=== PATIENT | female | born 1940 | race Caucasian/White ===

== ENCOUNTER 2018-05-06 00:25 | Emergency (ER) | payer MEDICARE, MEDICAID ==
[2018-05-06] MEDS ORDERED: Ondansetron PF 4 MG/2 ML Vial ONE (00:31)
[2018-05-06] MEDS ORDERED: Meclizine HCl 25 MG TAB ONE (01:07)
[2018-05-06 01:47] LABS: Bilirubin Negative (Negative); Blood, Urine Negative (Negative); Clarity CLEAR (Clear); Glucose, Urine (Dipstick) 100 mg/dL (Negative); Leukocyte Negative (Negative); Nitrite Negative (Negative); Protein, Urine (Dipstick) Trace mg/dL (Neg-Trace); Specific Gravity, Urine 1.011 (1.002-1.036); Urobilinogen 0.2 mg/dL (0.2-1.0); pH, Urine 6.5 (5.0-9.0)
[2018-05-06 01:58] LABS: #Eosinphils 0.1 thou/uL (0.0-0.7); #Lymphocytes 0.8 thou/uL (1.20-3.40); #Monocytes 0.7 thou/uL (0.11-0.59); %Basophils 0.3 % (0.0-1.0); %Eosinophils 0.3 % (0.0-10.0); %Lymphocytes 5.2 % (21.0-51.0); %Monocytes 4.7 % (0.0-10.0); %Neutrophils 89.5 % (42.0-75.0); Hemoglobin 14.3 g/dL (12.0-16.0); Mean Corpuscular HGB CONC 33.1 g/dL (32.0-36.0); Mean Corpuscular Hemoglobin 33.6 pg (27.0-31.0); Mean Platelet Volume 8.1 fL (7.4-10.4); Platelet Count 245 thou/uL (130-400); RBC Distribution Width 12.2 % (11.5-14.5); Red Blood Cell (RBC) Count 4.25 mill/uL (4.20-5.40); White Blood Cell (WBC) Count 15.6 thou/uL (4.8-10.8)
[2018-05-06 02:15] LABS: ALT (SGPT) 17 U/L (8-55); AST (SGOT) 19 U/L (5-34); Albumin 4.5 g/dL (3.4-4.8); Alkaline Phosphatase 47 U/L (40-150); Anion Gap 16 mmol/L (10-20); BUN (Urea Nitrogen) 14 mg/dL (9.8-20.1); Bilirubin, Total 0.5 mg/dL (0.2-1.2); CK (CPK) 85 U/L (29-168); Calc. Creatinine Clearance 0 mL/min (70-130); Calcium 9.3 mg/dL (7.8-10.44); Carbon Dioxide 22 mmol/L (23-31); Chloride 102 mmol/L (98-107); Estimated GFR-MDRD 55; Globulin 2.8 g/dL (2.4-3.5); Glucose 125 mg/dL (83-110); Potassium 3.5 mmol/L (3.5-5.1); Protein, Total 7.3 g/dL (6.0-8.3); Sodium 136 mmol/L (136-145)
--- NOTE | 2018-05-06 08:01 | CT ---
FINAL REPORT EMERGENT AFTER HOURS CT OF THE BRAIN WITHOUT CONTRAST: COMPARISON: 02/02/2016. FINDINGS/IMPRESSION: I agree with the findings and impression given in the preliminary report per [facility] physician. Small- vessel ischemic disease without acute intracranial abnormality. POS: [facility]
--- NOTE | 2018-05-06 08:16 | RAD ---
SINGLE VIEW CHEST: Date: 05/06/18 COMPARISON: None. HISTORY: New onset nausea and vomiting. Dizziness. FINDINGS: Single view of the chest shows a normal sized cardiomediastinal silhouette. There is no evidence of c onsolidation, mass, or pleural effusion. The bones are unremarkable. IMPRESSION: No evidence of acute cardiopulmonary disease. POS: [facility]
== END 2018-05-06 03:25 | disposition home or self-care (01) ==
LOC: ERS 00:25
DX: R11.2 Nausea with vomiting, unspecified (principal); R42 Dizziness and giddiness; E03.9 Hypothyroidism, unspecified; E78.5 Hyperlipidemia, unspecified; F32.9 Major depressive disorder, single episode, unspecified; Z87.891 Personal history of nicotine dependence
CPT/HCPCS: 36415; 70450; 71045; 80053; 81003; 82550; 84484; 85025; 96374; J2405

== ENCOUNTER 2019-05-09 09:33 | Emergency (ER) | payer MEDICARE, MEDICAID ==
[2019-05-09 10:07] LABS: #Eosinphils 0.2 thou/uL (0.0-0.7); #Lymphocytes 0.9 thou/uL (1.20-3.40); #Monocytes 0.4 thou/uL (0.11-0.59); #Neutrophils 3.9 thou/uL (1.40-6.50); %Basophils 0.6 % (0.0-1.0); %Lymphocytes 17.3 % (21.0-51.0); %Monocytes 7.8 % (0.0-10.0); %Neutrophils 71.2 % (42.0-75.0); Hemoglobin 13.8 g/dL (12.0-16.0); Mean Corpuscular HGB CONC 34.6 g/dL (32.0-36.0); Mean Corpuscular Hemoglobin 34.3 pg (27.0-31.0); Mean Platelet Volume 8.2 fL (7.4-10.4); Platelet Count 225 thou/uL (130-400); RBC Distribution Width 12.6 % (11.5-14.5); Red Blood Cell (RBC) Count 4.04 mill/uL (4.20-5.40); White Blood Cell (WBC) Count 5.4 thou/uL (4.8-10.8)
[2019-05-09 10:27] LABS: ALT (SGPT) 12 U/L (8-55); AST (SGOT) 15 U/L (5-34); Albumin 4.2 g/dL (3.4-4.8); Alkaline Phosphatase 37 U/L (40-110); Anion Gap 12 mmol/L (10-20); BUN (Urea Nitrogen) 21 mg/dL (9.8-20.1); CK (CPK) 62 U/L (29-168); Calc. Creatinine Clearance 0 mL/min (70-130); Calcium 9.2 mg/dL (7.8-10.44); Carbon Dioxide 26 mmol/L (23-31); Chloride 105 mmol/L (98-107); Estimated GFR-MDRD 62; Globulin 2.3 g/dL (2.4-3.5); Glucose 129 mg/dL (83-110); Potassium 4.4 mmol/L (3.5-5.1); Protein, Total 6.5 g/dL (6.0-8.3); Sodium 139 mmol/L (136-145)
--- NOTE | 2019-05-09 10:34 | CT ---
Head CT without contrast 05/09/2019: COMPARISON: 05/06/2018 HISTORY: Dizziness with nausea and vomiting, headache TECHNIQUE: Axial CT imaging at 5 mm intervals from vertex through skull base without contrast FINDINGS: Visualized paranasal sinuses and mastoid air cells are well-aerated. There is no displaced calvarial fracture noted. There is extensive periventricular, deep, and subcortical white matter hypodensity, evidence of stable small vessel disease. No intracranial hemorrhage, midline shift, or mass effect. IMPRESSION: Small vessel disease. No intracranial hemorrhage.
--- NOTE | 2019-05-09 10:42 | RAD ---
CHEST ONE VIEW: History: Chest pain Comparison: 05-06-18 FINDINGS: Lungs are mildly hyperinflated. No pneumothorax or effusion. Scarring left lung base. Pulmonary arter ies are mildly distended. Mild ectasia of the descending thoracic aorta. No acute osseous abnormality. IMPRESSION: No acute intrathoracic abnormality. POS: [facility]
[2019-05-09 11:00] LABS: Bacteria/HPF 4+ HPF (None Seen); Bilirubin Negative (Negative); Blood, Urine Negative (Negative); Clarity Turbid (Clear); Glucose, Urine (Dipstick) Normal (Negative); Leukocyte 500 Leu/uL (Negative); Nitrite Negative (Negative); Protein, Urine (Dipstick) 10 mg/dL (Neg-Trace); RBC/HPF 0-3 HPF (0-3); Squamous Epithelial 0-3 HPF (0-3); Urobilinogen Normal mg/dL (Less than 2); WBC/HPF Greater than 50 HPF (0-3)
== END 2019-05-09 13:13 | disposition home or self-care (01) ==
LOC: ERS 09:33
DX: R42 Dizziness and giddiness (principal); N39.0 Urinary tract infection, site not specified; E03.9 Hypothyroidism, unspecified; E78.00 Pure hypercholesterolemia, unspecified; F32.9 Major depressive disorder, single episode, unspecified; Z79.899 Other long term (current) drug therapy; Z87.891 Personal history of nicotine dependence
CPT/HCPCS: 36415; 70450; 71045; 80053; 81003; 81015; 82550; 84484; 85025; 87077; 87086; 87186; 93005

== ENCOUNTER 2019-12-31 01:06 | Emergency (ER) | payer MEDICARE, MEDICAID ==
[2019-12-31 02:13] LABS: #Basophils 0.1 thou/uL (0.0-0.2); #Eosinphils 0.1 thou/uL (0.0-0.7); #Lymphocytes 0.9 thou/uL (1.20-3.40); #Monocytes 0.5 thou/uL (0.11-0.59); #Neutrophils 4.4 thou/uL (1.40-6.50); %Eosinophils 1.4 % (0.0-10.0); %Lymphocytes 14.3 % (21.0-51.0); %Monocytes 9.1 % (0.0-10.0); %Neutrophils 74.1 % (42.0-75.0); Hemoglobin 13.5 g/dL (12.0-16.0); Mean Corpuscular HGB CONC 34.1 g/dL (32.0-36.0); Mean Corpuscular Hemoglobin 33.9 pg (27.0-31.0); Mean Corpuscular Volume 99.6 fL (78.0-98.0); Mean Platelet Volume 8.3 fL (7.4-10.4); Platelet Count 216 thou/uL (130-400); RBC Distribution Width 12.1 % (11.5-14.5); Red Blood Cell (RBC) Count 3.97 mill/uL (4.20-5.40); White Blood Cell (WBC) Count 5.9 thou/uL (4.8-10.8)
[2019-12-31 02:36] LABS: ALT (SGPT) 8 U/L (8-55); AST (SGOT) 12 U/L (5-34); Albumin 4.1 g/dL (3.4-4.8); Alkaline Phosphatase 30 U/L (40-110); Anion Gap 13 mmol/L (10-20); BUN (Urea Nitrogen) 18 mg/dL (9.8-20.1); Bilirubin, Total 0.4 mg/dL (0.2-1.2); Calc. Creatinine Clearance 0 mL/min (70-130); Calcium 9.4 mg/dL (7.8-10.44); Carbon Dioxide 26 mmol/L (23-31); Chloride 101 mmol/L (98-107); Estimated GFR-MDRD 52; Globulin 2.6 g/dL (2.4-3.5); Glucose 147 mg/dL (83-110); Lipase 16 U/L (8-78); Potassium 4.1 mmol/L (3.5-5.1); Protein, Total 6.7 g/dL (6.0-8.3); Sodium 136 mmol/L (136-145)
[2019-12-31 03:13] LABS: Bacteria/HPF 3+ HPF (None Seen); Bilirubin Negative (Negative); Blood, Urine Negative (Negative); Clarity Turbid (Clear); Glucose, Urine (Dipstick) Normal (Negative); Ketone, Urine Negative (Negative); Leukocyte 25 Leu/uL (Negative); Nitrite 1+ (Negative); Protein, Urine (Dipstick) Negative (Neg-Trace); RBC/HPF 0-3 HPF (0-3); Specific Gravity, Urine 1.011 (1.002-1.036); Squamous Epithelial 0-3 HPF (0-3); Urobilinogen Normal mg/dL (Less than 2); pH, Urine 7.5 (5.0-9.0)
--- NOTE | 2019-12-31 07:57 | CT ---
PRELIMINARY REPORT/[facility]/EMERGENCY AFTER HOURS PROCEDURE EXAM: CT Head Without Intravenous Contrast. CLINICAL HISTORY: 79 y/o F presents to ED after standing up, and becoming suddenly dizzy. She then became nauseous, and vomited several times. The pt fell back into her chair in a seated position. TECHNIQUE: Axial computed tomography images of the head/brain without intravenous contrast. COMPARISON: CT\SR - CT BRAIN WO CON - 05/09/2019 10:27 AM [facility] FINDINGS: BRAIN: No acute intraparenchymal hemorrhage. No mass lesion. No CT evidence for acute territorial infarct. N o midline shift or extra-axial collection. Stable, diffuse cerebral atrophy. There are subcortical and deep white matter hypodensities which are nonspecific but which statistical ly most likely reflect changes of chronic small vessel ischemic disease, not significantly changed. ORBITS: The orbits are unremarkable. SINUSES AND MASTOIDS: The paranasal sinuses and mastoid air cells are unremarkable. SOFT TISSUES: No significant facial or scalp soft tissue swelling evident. No radiopaque foreign body is seen. BONES: No acute skull fracture. IMPRESSION: 1. No evidence of acute intracranial abnormality. 2. Stable, diffuse cerebral atrophy. 3. There are subcortical and deep white matter hypodensities which are nonspecific but which statisti nathalie most likely reflect changes of chronic small vessel ischemic disease, not significantly changed. ELECTRONICALLY SIGNED BY: Thien Ortiz MD Dec 31, 2019 2:32:33 AM CDT This report is intended for review by the ordering physician only, in accordance of law. If you recei ve this report in error, please call [facility] at [phone]. FINAL REPORT Final report by Dr. Dial Emergency after-hours study CT BRAIN NONCONTRAST: DATE: 12/31/2019 2:20 AM HISTORY: 79-year-old female with sudden onset dizziness, nausea, vomiting, and fall. COMPARISON: 05/09/2019 FINDINGS: There is no evidence of acute intra-axial or extra-axial hemorrhage. There is no midline shift or any other mass effect. There is no extra-axial fluid collection. There is no evidence of obstructive hydrocephalus. Calvarium is intact. There is diffuse brain parenchymal volume loss. There are low att enuation areas in the white matter. These are nonspecific, but in a patient of this age, they are probably chronic ischemic white matter changes due to microvascular atherosclerosis. There is an appa rently new finding of a small patchy focal region of low density in the central portion of the macy. This could either represent artifact or a pontine infarction. If this is real, it is uncertain when it occurred, but it has apparently occurred sometime after the previous CT of 05/09/2019. This was not mentioned in the preliminary report by [facility]. Disagreement with preliminary report by [facility]. IMPRESSION: 1) Questionable pontine infarction, of indeterminate age. Recommend MRI of the brain. 1) No acute intracranial hemorrhage or mass effect. 2) Involutional changes and chronic ischemic white matter changes. Transcribed Date/Time: 12/31/2019 8:02 AM Addendum: The disagreement and recommendation for MRI were discussed by Dr. Dial with ER charge nurse Saul Vazquez at 8:42 AM 12/31/2019
--- NOTE | 2020-01-10 14:20 | EKG ---
Test Reason : Blood Pressure : / mmHG Vent. Rate : 059 BPM Atrial Rate : 059 BPM P-R Int : 224 ms QRS Dur : 094 ms QT Int : 490 ms P-R-T Axes : 090 025 061 degrees QTc Int : 485 ms Sinus bradycardia with 1st degree A-V block Cannot rule out Anterior infarct , age undetermined Abnormal ECG Confirmed by ROCK CRUMP ([id number]), editor department ELIAS HARRY ([id number]) on 01/10/2020 2:19:59 PM Referred By: Confirmed By:ROCK CRUMP
== END 2019-12-31 04:03 | disposition home or self-care (01) ==
LOC: ERS 01:06
DX: N39.0 Urinary tract infection, site not specified (principal); E03.9 Hypothyroidism, unspecified; E78.00 Pure hypercholesterolemia, unspecified; F32.9 Major depressive disorder, single episode, unspecified; Z87.891 Personal history of nicotine dependence
CPT/HCPCS: 36415; 70450; 80053; 81003; 81015; 83690; 84484; 85025; 93005

== ENCOUNTER 2019-12-31 10:34 | Emergency (ER) | payer MEDICARE, MEDICAID ==
--- NOTE | 2019-12-31 12:22 | MRI ---
MRI BRAIN WITHOUT CONTRAST: HISTORY: Dizziness. FINDINGS: Correlation is made with the CT from earlier today. FINDINGS: No restricted diffusion is seen. There are multiple foci of T2 prolongation in the periventricular wh ite matter consistent with chronic small-vessel ischemic disease. Changes of cortical atrophy are pr esent. The ventricular size is appropriate and the basilar cisterns patent. No evidence of acute infarct, hemorrhage, midline shift, or abnormal extraaxial fluid collection is s een. The visualized paranasal sinuses and mastoid air cells are well aerated. There is a small focu s of decreased signal intensity on the gradient echo sequences involving the anterior aspect of the r ight mid brain consistent with hemosiderin deposition/remote hemorrhage. IMPRESSION: No evidence of acute intracranial process. POS: [facility]
== END 2019-12-31 12:59 | disposition home or self-care (01) ==
LOC: ERS 10:34
DX: R42 Dizziness and giddiness (principal); E03.9 Hypothyroidism, unspecified; E78.5 Hyperlipidemia, unspecified; F32.9 Major depressive disorder, single episode, unspecified; Z87.891 Personal history of nicotine dependence
CPT/HCPCS: 70551

== ENCOUNTER 2020-08-06 09:30 | Inpatient (IN) | payer MEDICARE, MEDICAID ==
[2020-08-06 10:07] LABS: #Eosinphils 0.1 thou/uL (0.0-0.7); #Lymphocytes 0.9 thou/uL (1.20-3.40); #Monocytes 0.5 thou/uL (0.11-0.59); #Neutrophils 3.5 thou/uL (1.40-6.50); %Basophils 0.5 % (0.0-1.0); %Eosinophils 1.9 % (0.0-10.0); %Monocytes 9.3 % (0.0-10.0); %Neutrophils 70.3 % (42.0-75.0); Hemoglobin 14.6 g/dL (12.0-16.0); Mean Corpuscular HGB CONC 33.6 g/dL (32.0-36.0); Mean Corpuscular Hemoglobin 33.2 pg (27.0-31.0); Mean Corpuscular Volume 98.9 fL (78.0-98.0); Mean Platelet Volume 8.1 fL (7.4-10.4); Platelet Count 193 thou/uL (130-400); RBC Distribution Width 12.2 % (11.5-14.5); Red Blood Cell (RBC) Count 4.41 mill/uL (4.20-5.40); White Blood Cell (WBC) Count 4.9 thou/uL (4.8-10.8)
[2020-08-06 10:36] LABS: ALT (SGPT) 8 U/L (8-55); AST (SGOT) 12 U/L (5-34); Albumin 4.2 g/dL (3.4-4.8); Alkaline Phosphatase 34 U/L (40-110); Anion Gap 17 mmol/L (10-20); BUN (Urea Nitrogen) 18 mg/dL (9.8-20.1); Bilirubin, Total 0.9 mg/dL (0.2-1.2); Calc. Creatinine Clearance 0 mL/min (70-130); Calcium 9.4 mg/dL (7.8-10.44); Carbon Dioxide 19 mmol/L (23-31); Chloride 105 mmol/L (98-107); Globulin 2.9 g/dL (2.4-3.5); Glucose 105 mg/dL (83-110); Potassium 4.2 mmol/L (3.5-5.1); Protein, Total 7.1 g/dL (5.8-8.1); Sodium 137 mmol/L (136-145)
[2020-08-06] MEDS ORDERED: Magnevist 469MG/ML 20 ML VIAL ONE (11:23)
[2020-08-06 11:34] LABS: Bilirubin Negative (Negative); Blood, Urine Negative (Negative); Clarity Turbid (Clear); Glucose, Urine (Dipstick) Normal (Negative); Ketone, Urine Negative (Negative); Leukocyte Negative Leu/uL (Negative); Nitrite Negative (Negative); Protein, Urine (Dipstick) Negative (Neg-Trace); Specific Gravity, Urine 1.011 (1.002-1.036); Urobilinogen Normal mg/dL (Less than 2); pH, Urine 7.5 (5.0-9.0)
[2020-08-06 18:08] LABS: Troponin I Less than 0.010 ng/mL (< 0.028)
[2020-08-06 20:49] LABS: Troponin I Less than 0.010 ng/mL (< 0.028)
[2020-08-06] MEDS ORDERED: Ondansetron PF 4 MG/2 ML Vial IVP PRN (21:01)
[2020-08-06] MEDS ORDERED: Acetaminophen 325 MG TAB PO PRN (21:01)
[2020-08-06] MEDS ORDERED: hydrALAZINE 20 MG/ML VIAL SLOW IVP PRN (22:07)
[2020-08-06 22:44] VITALS: BMI 24.4
[2020-08-06] MEDS: Sodium Chloride 0.9% 1,000 ML IV SCH (22:52)
[2020-08-07] LABS: Troponin I Less than 0.010 ng/mL (< 0.028)
[2020-08-07 00:47] LABS: SARS-CoV-2 PCR by NAA Not Detected (NotDetected)
[2020-08-07 04:44] LABS: #Eosinphils 0.2 thou/uL (0.0-0.7); #Lymphocytes 1.3 thou/uL (1.20-3.40); #Monocytes 1.1 thou/uL (0.11-0.59); #Neutrophils 5.3 thou/uL (1.40-6.50); %Basophils 0.5 % (0.0-1.0); %Eosinophils 2.7 % (0.0-10.0); %Lymphocytes 16.8 % (21.0-51.0); %Monocytes 13.4 % (0.0-10.0); %Neutrophils 66.5 % (42.0-75.0); Hemoglobin 12.8 g/dL (12.0-16.0); Mean Corpuscular Hemoglobin 33.8 pg (27.0-31.0); Mean Corpuscular Volume 99.4 fL (78.0-98.0); Mean Platelet Volume 8.2 fL (7.4-10.4); Platelet Count 212 thou/uL (130-400); RBC Distribution Width 12.1 % (11.5-14.5)
[2020-08-07 05:05] LABS: Anion Gap 12 mmol/L (10-20); BUN (Urea Nitrogen) 14 mg/dL (9.8-20.1); Calc. Creatinine Clearance 52 mL/min (70-130); Calcium 8.5 mg/dL (7.8-10.44); Carbon Dioxide 23 mmol/L (23-31); Chloride 108 mmol/L (98-107); Glucose 85 mg/dL (83-110); Potassium 3.8 mmol/L (3.5-5.1); Sodium 139 mmol/L (136-145)
[2020-08-07 05:06] LABS: Troponin I Less than 0.010 ng/mL (< 0.028)
[2020-08-07] MEDS: Sodium Chloride 0.9% 1,000 ML IV SCH (06:17)
[2020-08-07] MEDS: hydrALAZINE 25 MG TAB PO SCH ×3 (09:56→20:39)
[2020-08-07] MEDS: Famotidine 20 MG TAB PO SCH ×2 (09:56→20:45)
[2020-08-07] MEDS: Enoxaparin Sodium 40 MG/0.4 ML SYRINGE SC SCH (09:56)
[2020-08-07] MEDS: Meclizine HCl 25 MG TAB PO SCH ×2 (14:16→21:16)
[2020-08-08] MEDS: Meclizine HCl 25 MG TAB PO SCH (05:46)
[2020-08-08] MEDS ORDERED: Levothyroxine Sodium 100 MCG TAB PO SCH (06:00)
[2020-08-08] MEDS: hydrALAZINE 25 MG TAB PO SCH (09:46)
[2020-08-08] MEDS: Enoxaparin Sodium 40 MG/0.4 ML SYRINGE SC SCH (09:46)
[2020-08-08] MEDS: Famotidine 20 MG TAB PO SCH (09:46)
[2020-08-08 09:52] VITALS: BP 171/81; TEMP 98.5
== END 2020-08-08 09:50 | disposition home or self-care (01) | DRG 149 ==
LOC: ERS 09:30 → 2NO 18:44
PROVIDERS: ADMIT Family Medicine; ATTEND Family Medicine
DX: H81.10 Benign paroxysmal vertigo, unspecified ear (principal); E78.5 Hyperlipidemia, unspecified; R00.1 Bradycardia, unspecified; Z20.822 Contact with and (suspected) exposure to COVID-19; E03.9 Hypothyroidism, unspecified; I10 Essential (primary) hypertension; E78.00 Pure hypercholesterolemia, unspecified; F32.9 Major depressive disorder, single episode, unspecified; F41.9 Anxiety disorder, unspecified; M19.90 Unspecified osteoarthritis, unspecified site; Z98.51 Tubal ligation status; Z87.891 Personal history of nicotine dependence; Z88.2 Allergy status to sulfonamides; Z79.899 Other long term (current) drug therapy; Z79.890 Hormone replacement therapy; Z88.0 Allergy status to penicillin; Z88.6 Allergy status to analgesic agent
CPT/HCPCS: 36415; 70450; 70553; 71045; 80048; 80053; 81003; 83880; 84443; 84484; 85025; 87086; 87635; 93005; 93306; 93880; A9579; J0360; U0003; U0005

== ENCOUNTER 2020-08-20 09:16 | Observation (INO) | payer MEDICARE, MEDICAID ==
[2020-08-20 10:05] LABS: #Basophils 0.1 thou/uL (0.0-0.2); #Eosinphils 0.1 thou/uL (0.0-0.7); #Lymphocytes 1.1 thou/uL (1.20-3.40); #Monocytes 0.5 thou/uL (0.11-0.59); #Neutrophils 3.1 thou/uL (1.40-6.50); %Basophils 1.2 % (0.0-1.0); %Lymphocytes 22.4 % (21.0-51.0); %Monocytes 9.6 % (0.0-10.0); %Neutrophils 63.8 % (42.0-75.0); Hemoglobin 14.8 g/dL (12.0-16.0); Mean Corpuscular Hemoglobin 32.7 pg (27.0-31.0); Mean Corpuscular Volume 99.1 fL (78.0-98.0); Mean Platelet Volume 8.4 fL (7.4-10.4); Platelet Count 227 thou/uL (130-400); Red Blood Cell (RBC) Count 4.53 mill/uL (4.20-5.40); White Blood Cell (WBC) Count 4.9 thou/uL (4.8-10.8)
[2020-08-20] MEDS ORDERED: Ondansetron ODT 4 MG TAB ONE (10:26)
[2020-08-20] MEDS ORDERED: Meclizine HCl 25 MG TAB ONE (10:26)
[2020-08-20 10:29] LABS: ALT (SGPT) 8 U/L (8-55); AST (SGOT) 11 U/L (5-34); Alkaline Phosphatase 32 U/L (40-110); Anion Gap 11 mmol/L (10-20); BUN (Urea Nitrogen) 14 mg/dL (9.8-20.1); Bilirubin, Total 0.8 mg/dL (0.2-1.2); Calc. Creatinine Clearance 0 mL/min (70-130); Calcium 9.6 mg/dL (7.8-10.44); Carbon Dioxide 28 mmol/L (23-31); Chloride 103 mmol/L (98-107); Globulin 2.6 g/dL (2.4-3.5); Glucose 103 mg/dL (83-110); Potassium 4.3 mmol/L (3.5-5.1); Protein, Total 6.6 g/dL (5.8-8.1); Sodium 138 mmol/L (136-145)
[2020-08-20 10:52] LABS: Bilirubin Negative (Negative); Blood, Urine Negative (Negative); Clarity Turbid (Clear); Glucose, Urine (Dipstick) Normal (Negative); Ketone, Urine Negative (Negative); Leukocyte Negative Leu/uL (Negative); Nitrite Negative (Negative); Protein, Urine (Dipstick) Negative (Neg-Trace); Specific Gravity, Urine 1.009 (1.002-1.036); Urobilinogen Normal mg/dL (Less than 2)
[2020-08-20] MEDS ORDERED: Ondansetron ODT 4 MG TAB PO PRN (13:01)
[2020-08-20] MEDS ORDERED: Meclizine HCl 12.5 MG TAB PO PRN (13:06)
[2020-08-20] MEDS ORDERED: Lactated Ringer's 1,000 ML IV SCH (13:15)
[2020-08-20] MEDS ORDERED: Bisacodyl 5 MG TAB PO PRN (13:15)
[2020-08-20 14:27] VITALS: BMI 23.1
[2020-08-20] MEDS: Senokot S 8.6-50 MG TAB PO SCH (20:35)
[2020-08-21 08:16] VITALS: BP 166/76; TEMP 98
[2020-08-21] MEDS: Senokot S 8.6-50 MG TAB PO SCH (09:27)
== END 2020-08-21 11:19 | disposition home or self-care (01) ==
LOC: ERS 09:16 → 2SE 12:30
PROVIDERS: ADMIT Family Medicine; ATTEND Family Medicine
DX: R55 Syncope and collapse (principal); R42 Dizziness and giddiness; E03.9 Hypothyroidism, unspecified; E78.5 Hyperlipidemia, unspecified; K21.9 Gastro-esophageal reflux disease without esophagitis; F03.90 Unspecified dementia, unspecified severity, without behavioral disturbance, psychotic disturbance, mood disturbance, and anxiety; Z87.891 Personal history of nicotine dependence; Z79.899 Other long term (current) drug therapy; Z88.0 Allergy status to penicillin; Z88.2 Allergy status to sulfonamides; Z88.6 Allergy status to analgesic agent
CPT/HCPCS: 51701; 70450; 80053; 81003; 84484; 85025; 93005; 97116; 97139; 99285; G0378 ×3; Q0162

== ENCOUNTER 2020-10-20 09:36 | Inpatient (IN) | payer MEDICARE, MEDICAID ==
[2020-10-20 10:37] LABS: ALT (SGPT) 14 U/L (8-55); AST (SGOT) 26 U/L (5-34); Acetaminophen Less than 6.0 mcg/mL (10.0-30.0); Alcohol Less than 10 mg/dL (Less than 10); Alkaline Phosphatase 36 U/L (40-110); Anion Gap 15 mmol/L (10-20); BUN (Urea Nitrogen) 19 mg/dL (9.8-20.1); Bilirubin, Total 0.4 mg/dL (0.2-1.2); Calc. Creatinine Clearance 0 mL/min (70-130); Calcium 8.9 mg/dL (7.8-10.44); Carbon Dioxide 22 mmol/L (23-31); Chloride 101 mmol/L (98-107); Globulin 2.9 g/dL (2.4-3.5); Glucose 122 mg/dL (83-110); Potassium 5.1 mmol/L (3.5-5.1); Protein, Total 6.9 g/dL (5.8-8.1); Salicylate Less than 8.0 mg/dL (15.0-30.0); Sodium 133 mmol/L (136-145)
[2020-10-20 10:47] LABS: Hemoglobin 13.7 g/dL (12.0-16.0); Mean Corpuscular HGB CONC 33.6 g/dL (32.0-36.0); Mean Corpuscular Hemoglobin 33.3 pg (27.0-31.0); Mean Corpuscular Volume 99.1 fL (78.0-98.0); Mean Platelet Volume 9.3 fL (7.4-10.4); Platelet Count 142 thou/uL (130-400); RBC Distribution Width 12.3 % (11.5-14.5); Red Blood Cell (RBC) Count 4.13 mill/uL (4.20-5.40); White Blood Cell (WBC) Count 4.8 thou/uL (4.8-10.8)
[2020-10-20] MEDS ORDERED: Iopamidol-370 76% 500 ML 1 ML ONE (10:47)
[2020-10-20 10:57] LABS: Band 30 % (5-11); Lymphocytes 12 % (21-51); MDiff Complete? YES; Monocytes 10 % (0-10); Neutrophil 48 % (42-75); Platelet Morphology Comment Appears Adequate; RBC Morphology Normal
[2020-10-20] MEDS ORDERED: Aspirin Chewable 81 MG TAB ONE (10:57)
[2020-10-20] MEDS ORDERED: Dextrose 5% in Water 1,000 ML IV PRN (11:57)
[2020-10-20] MEDS ORDERED: Dextrose 50% Abboject 50 ML SYRINGE SLOW IVP PRN (11:57)
[2020-10-20] MEDS ORDERED: Acetaminophen 325 MG TAB PO PRN (11:57)
[2020-10-20 12:11] LABS: Troponin I Less than 0.010 ng/mL (< 0.028)
[2020-10-20 12:20] LABS: Bilirubin Negative (Negative); Blood, Urine Negative (Negative); Clarity Clear (Clear); Glucose, Urine (Dipstick) Normal (Negative); Ketone, Urine Negative (Negative); Leukocyte Negative Leu/uL (Negative); Nitrite Negative (Negative); Protein, Urine (Dipstick) Negative (Neg-Trace); Specific Gravity, Urine 1.022 (1.002-1.036); Urobilinogen Normal mg/dL (Less than 2)
[2020-10-20 12:25] LABS: Amphetamine Not Detected (NotDetected); Barbiturates Screen Not Detected (NotDetected); Benzodiazepine Screen Not Detected (NotDetected); Cocaine Metabolite Screen Not Detected (NotDetected); Methadone Not Detected (NotDetected); Methamphetamine Not Detected (NotDetected); Opiate Screen Not Detected (NotDetected); Oxycodone Screen Not Detected (NotDetected); Phencyclidine (PCP) Not Detected (NotDetected); THC/Cannabinoid Screen Not Detected (NotDetected); Tricyclic Screen Not Detected (NotDetected)
[2020-10-20] MEDS ORDERED: Clopidogrel Bisulfate 75 MG TAB PO SCH (12:45)
[2020-10-20] MEDS ORDERED: Enoxaparin Sodium 40 MG/0.4 ML SYRINGE SC SCH (12:45)
[2020-10-20] MEDS ORDERED: Enoxaparin Sodium 40 MG/0.4 ML SYRINGE ONE (13:17)
[2020-10-20] MEDS ORDERED: Clopidogrel Bisulfate 75 MG TAB ONE (13:17)
[2020-10-20] MEDS ORDERED: Meclizine HCl 25 MG TAB PO PRN (13:40)
[2020-10-20 15:20] LABS: Hemoglobin A1c 5.3 % (4.0-6.0)
[2020-10-20 15:39] LABS: Cardiac Risk 5.5 (Less than 4.5)
[2020-10-20] MEDS ORDERED: Lactated Ringer's 1,000 ML IV ONE (16:13)
[2020-10-20 16:58] VITALS: BMI 20.7
[2020-10-20] MEDS ORDERED: Bisacodyl 5 MG TAB PO PRN (18:13)
[2020-10-20] MEDS ORDERED: Polyethylene Glycol 3350 17 GM Packet PO PRN (18:13)
[2020-10-20] MEDS ORDERED: Senokot 8.6 MG TAB PO PRN (18:13)
[2020-10-20 18:33] LABS: Bacteria/HPF None Seen HPF (None Seen); Bilirubin Negative (Negative); Blood, Urine Negative (Negative); Clarity Clear (Clear); Glucose, Urine (Dipstick) Normal (Negative); Ketone, Urine 10 mg/dL (Negative); Leukocyte 75 Leu/uL (Negative); Nitrite Negative (Negative); Protein, Urine (Dipstick) Negative (Neg-Trace); RBC/HPF 0-3 HPF (0-3); Specific Gravity, Urine 1.027 (1.002-1.036); Squamous Epithelial 0-3 HPF (0-3); Urobilinogen Normal mg/dL (Less than 2)
[2020-10-20 18:34] LABS: Urine Culture Reflex Yes Yes
[2020-10-20] MEDS: Atorvastatin Calcium 40 MG TAB PO SCH (19:45)
[2020-10-20] MEDS ORDERED: Atorvastatin Calcium 40 MG TAB PO SCH (21:00)
[2020-10-20 23:11] LABS: SARS-CoV-2 PCR by NAA DETECTED (NotDetected)
[2020-10-21 05:52] LABS: ALT (SGPT) 11 U/L (8-55); AST (SGOT) 22 U/L (5-34); Albumin 3.6 g/dL (3.4-4.8); Alkaline Phosphatase 32 U/L (40-110); Anion Gap 10 mmol/L (10-20); BUN (Urea Nitrogen) 14 mg/dL (9.8-20.1); Bilirubin, Total 0.4 mg/dL (0.2-1.2); Calc. Creatinine Clearance 42 mL/min (70-130); Calcium 8.3 mg/dL (7.8-10.44); Carbon Dioxide 24 mmol/L (23-31); Cardiac Risk 3.4 (Less than 4.5); Chloride 102 mmol/L (98-107); Cholesterol 171 mg/dl (< 200 Desired); Globulin 2.5 g/dL (2.4-3.5); Glucose 82 mg/dL (83-110); HDL Cholesterol 51 mg/dL (>60 Neg Risk); LDL Cholesterol, Calculated 108 mg/dL; Potassium 3.9 mmol/L (3.5-5.1); Protein, Total 6.1 g/dL (5.8-8.1); Sodium 132 mmol/L (136-145); Triglycerides 59 mg/dL (Less than 150)
[2020-10-21 05:55] LABS: Band 3 % (5-11); Hemoglobin 13.1 g/dL (12.0-16.0); Lymphocytes 18 % (21-51); MDiff Complete? YES; Mean Corpuscular HGB CONC 34.4 g/dL (32.0-36.0); Mean Corpuscular Hemoglobin 33.7 pg (27.0-31.0); Mean Platelet Volume 8.7 fL (7.4-10.4); Monocytes 13 % (0-10); Neutrophil 62 % (42-75); Platelet Count 142 thou/uL (130-400); Platelet Morphology Comment Appears Adequate; RBC Distribution Width 12.2 % (11.5-14.5); RBC Morphology Normal; Reactive Lymphocytes 4 % (0-10); Red Blood Cell (RBC) Count 3.87 mill/uL (4.20-5.40)
[2020-10-21] MEDS: Levothyroxine Sodium 100 MCG TAB PO SCH (05:57)
[2020-10-21] MEDS ORDERED: Levothyroxine Sodium 75 MCG TAB PO SCH (06:00)
[2020-10-21] MEDS: Enoxaparin Sodium 40 MG/0.4 ML SYRINGE SC SCH (09:24)
[2020-10-21] MEDS: Clopidogrel Bisulfate 75 MG TAB PO SCH (09:25)
[2020-10-21] MEDS ORDERED: Bisacodyl 5 MG TAB PO SCH (10:15)
[2020-10-21] MEDS: Atorvastatin Calcium 40 MG TAB PO SCH ×2 (20:10→20:35)
[2020-10-22] MEDS: Levothyroxine Sodium 100 MCG TAB PO SCH (01:40)
[2020-10-22] MEDS: Clopidogrel Bisulfate 75 MG TAB PO SCH (09:14)
[2020-10-22] MEDS: Enoxaparin Sodium 40 MG/0.4 ML SYRINGE SC SCH (09:14)
[2020-10-22] MEDS ORDERED: Hydrochlorothiazide 25 MG TAB PO SCH ×2 (10:42→11:00)
[2020-10-22 12:19] VITALS: BP 111/62; TEMP 98.1
[2020-10-23] MEDS ORDERED: Hydrochlorothiazide 25 MG TAB PO SCH (09:00)
== END 2020-10-22 14:15 | disposition home or self-care (01) | DRG 69 ==
LOC: ERS 09:36 → ERHOLD 11:10 → 2SE 16:10 → 2SW 10-21 01:18
PROVIDERS: ADMIT Internal Medicine; ATTEND Internal Medicine
PROC: 8E0ZXY6 Isolation (ICD-10-PCS; principal; 2020-10-20)
DX: G45.9 Transient cerebral ischemic attack, unspecified (principal); U07.1 COVID-19; R47.01 Aphasia; F05 Delirium due to known physiological condition; E78.5 Hyperlipidemia, unspecified; E03.9 Hypothyroidism, unspecified; D72.825 Bandemia; N18.32 Chronic kidney disease, stage 3b; K59.00 Constipation, unspecified; I12.9 Hypertensive chronic kidney disease with stage 1 through stage 4 chronic kidney disease, or unspecified chronic kidney disease; M19.90 Unspecified osteoarthritis, unspecified site; M81.0 Age-related osteoporosis without current pathological fracture; E55.9 Vitamin D deficiency, unspecified; R73.03 Prediabetes; I48.91 Unspecified atrial fibrillation; Z53.20 Procedure and treatment not carried out because of patient's decision for unspecified reasons; I49.3 Ventricular premature depolarization; H81.399 Other peripheral vertigo, unspecified ear; Z60.2 Problems related to living alone; E78.00 Pure hypercholesterolemia, unspecified; K21.9 Gastro-esophageal reflux disease without esophagitis; G30.0 Alzheimer's disease with early onset; F02.80 Dementia in other diseases classified elsewhere, unspecified severity, without behavioral disturbance, psychotic disturbance, mood disturbance, and anxiety; Z88.0 Allergy status to penicillin; Z88.2 Allergy status to sulfonamides; Z88.8 Allergy status to other drugs, medicaments and biological substances; Z79.899 Other long term (current) drug therapy; Z79.890 Hormone replacement therapy; Z98.51 Tubal ligation status; Z82.0 Family history of epilepsy and other diseases of the nervous system; Z79.02 Long term (current) use of antithrombotics/antiplatelets; Z87.891 Personal history of nicotine dependence
CPT/HCPCS: 36415; 36416; 70450; 70496; 70498; 70551; 71045; 80053; 80061; 80306; 80307; 81003; 82553; 83036; 83880; 84146; 84443; 84484; 85025; 87086; 93005; 99285; J1650; Q9967; U0003; U0005